=== PATIENT | female | born 1940 | race Caucasian/White ===

== ENCOUNTER 2019-02-15 09:12 | Emergency (ER) | payer MEDICARE, MEDICAID ==
[~2019-02-15] VITALS: Ht 157.5 cm; Wt 56.7 kg
[2019-02-15] MEDS ORDERED: ATORVASTATIN CA20 MG ORAL (09:23)
[2019-02-15] MEDS ORDERED: DONEPEZIL HCL10 M2 ORAL (09:23)
[2019-02-15] MEDS ORDERED: AMLODIPINE BES2.5 MG ORAL (09:23)
--- NOTE | 2019-02-15 09:41 | Emergency Room Report ---
History of Present Illness General Chief Complaint: Lower Extremity Injury Source: Family Member Present Illness HPI Patient is an 78-year-old female brought in by family member after increased right lower extremity pain. Patient reports having increased pain to the low back as well as the right hip and right knee. She did prior history of hypertension. She had prior mild dementia. She is taking ibuprofen for pain. Denies any weakness. She had been ambulatory without assistance. Pain is worse with movement but is constant. Denies any other injury or recent fall. Allergies: Coded Allergies: No Known Allergies (Unverified , 02/15/19) Patient History Past Medical History: see triage record Reviewed Nursing Documentation: PMH: Agreed; PSxH: Agreed Nursing Documentation-PMH Past Medical History: No History, Except For Hx Hypertension: Yes Hx Pacemaker: Yes Review of Systems All Other Systems: limited - Review of systems: Review systems is limited by patient's being a poor historian Physical Exam Vital Signs Date Time Temp Pulse Resp B/P (MAP) Pulse Ox O2 Delivery O2 Flow Rate FiO2 02/15/19 09:17 98.1 60 18 138/77 (97) 95 Room Air Sp02 EP Interpretation: reviewed, normal General Appearance: normal inspection, no apparent distress, alert, GCS 15, Chronically Ill Head: atraumatic ENT: normal ENT inspection, hearing grossly normal, normal voice Neck: normal inspection, full range of motion, supple, no bony tend Respiratory: normal inspection, lungs clear, normal breath sounds, no respiratory distress, no retraction, no wheezing Cardiovascular #1: regular rate, rhythm, no edema Gastrointestinal: normal inspection, normal bowel sounds, non tender, soft, no guarding, no hernia Genitourinary: no CVA tenderness Musculoskeletal: normal inspection, back normal, normal range of motion Neurologic: normal inspection, alert, responsive, momd teacher III-XII nml as tested, motor strength/tone normal, DTRs symmetric Psychiatric: normal inspection, judgement/insight normal, mood/affect normal Skin: no rash Medical Decision Making Diagnostic Impression: Primary Impression: Arthritis Additional Impression: Lumbar disc disease ER Course Patient presented for right knee pain and low back pain. Differential diagnosis include was not limited to herniated disc, fracture, Alonzo's cyst, arthritis among others. CT imaging of the lumbar spine was ordered due to patient's symptoms which are somewhat consistent with some radiculopathy. X- ray imaging of the knee showed degenerative changes without an fracture. X-ray imaging of the right ankle 3 views read by radiology showed degenerative changes without acute fracture. CT imaging read by radiology showed no evidence of compression fracture. There is degenerative changes noted. See radiology reports for full details. Patient appears to have some degenerative arthritis and was given prescription for pain medications. Patient is to follow -up with Dr. Womack for recheck. Patient to return if any worsening condition or other concerns. She is noted to be ambulatory with steady gait. Patient was given prescription for Voltaren gel as well as for Tylenol. Labs Test 02/15/19 09:40 Urine Color Pale yellow Urine Appearance Clear Urine pH 5 (4.5-8.0) Urine Specific [place] 1.015 (1.005-1.035) Urine Protein Negative (NEGATIVE) Urine Glucose (UA) Negative (NEGATIVE) Urine Ketones Negative (NEGATIVE) Urine Blood 1+ (NEGATIVE) Urine Nitrite Negative (NEGATIVE) Urine Bilirubin Negative (NEGATIVE) Urine Urobilinogen Normal MG/DL (0.0-1.0) Urine Leukocyte Esterase Negative (NEGATIVE) Urine RBC 0-2 /HPF (0 - 2) Urine WBC 0-2 /HPF (0 - 2) Urine Squamous Epithelial Cells Occasional /LPF Urine Bacteria Occasional /HPF (NONE) Last Vital Signs Date Time Temp Pulse Resp B/P (MAP) Pulse Ox O2 Delivery O2 Flow Rate FiO2 02/15/19 09:17 98.1 60 18 138/77 (97) 95 Room Air Status: improved Disposition: HOME, SELF-CARE Condition: Stable Scripts Diclofenac Sodium (VOLTAREN) 100 Gm Gel..gram. 5 GM TP TWICE A DAY, #100 GM Prov: Tyrese Wade MD 02/15/19 Acetaminophen* (ACETAMINOPHEN EXTRA STRENGTH*) 500 Mg Tablet 500 MG ORAL Q6H, #30 TAB Prov: Tyrese Wade MD 02/15/19 Tyrese Wade MD Feb 15, 2019 09:41
[2019-02-15] MEDS ORDERED: Acetaminophen 500mg (ES) tab ORAL ONE (09:45)
[2019-02-15 09:54] LABS: APPEARANCE,URINE CLEAR; BILIRUBIN, URINE NEGATIVE (NEGATIVE); COLOR,URINE PALE YELLOW; GLUCOSE, URINE (UA) NEGATIVE (NEGATIVE); KETONES,URINE NEGATIVE (NEGATIVE); LEUKOCYTE ESTERASE ,URINE NEGATIVE (NEGATIVE); NITRITE,URINE NEGATIVE (NEGATIVE); PH,URINE 5 (4.5-8.0); PROTEIN,URINE NEGATIVE (NEGATIVE); UROBILINOGEN,URINE NORMAL MG/DL (0.0-1.0)
[2019-02-15] MEDS ORDERED: ACETAMINOPHEN500 M3 ORAL (10:54)
[2019-02-15] MEDS ORDERED: VOLTAREN100 G1 TP (10:54)
--- NOTE | 2019-02-15 11:16 | Diagnostic Imaging Report ---
Indications: Right lower extremity pain and low back pain Technique: Spiral acquisitions obtained through the lumbar spine. Multiplanar reconstructions were generated. No IV contrast utilized. Total dose length product 313 mGycm. CTDIvol(s) mGy. Dose reduction achieved using automated exposure control Comparison: none Findings: Bony alignment is normal. Vertebral body heights are preserved. No acute fractures. No dislocations. At T12-L1, there is mild degenerative disc narrowing and vacuum formation. There is mild bilateral facet arthrosis. No significant disc bulge or protrusion, spinal stenosis, or neural foraminal narrowing. At L1-2, there is minimal if any degenerative disc narrowing. There is some adjacent endplate irregularity. No significant disc bulge or protrusion, spinal stenosis, or neural foraminal stenosis. There is mild bilateral facet arthrosis. At L2-3, there is minimal if any degenerative disc narrowing. There is bilateral facet arthrosis. There is left subarticular and intraforaminal broad-based disc protrusion as well as generalized mild circumferential annular bulge. This may result in compromise of the left lateral recess and and slight compromise of the left neural foramen. No central canal stenosis demonstrated. There is mild bilateral facet arthrosis. At L3-4, there is mild to moderate degenerative disc narrowing. There is generalized circumferential annular bulge and more focal broad-based left-sided paracentral, subarticular, and intraforaminal disc protrusion. This may slightly compromise the left lateral recess and the neural foramen. No significant central canal stenosis. Facet arthrosis may result in mild right neural foraminal compromise At L4-5, the disc space is preserved. There is generalized circumferential annular bulge. There is bilateral ligamentum flavum hypertrophy and facet arthrosis. This does not significantly narrow the spinal canal, may slightly compromised bilateral lateral recesses. There may be minimal compromise of the bilateral neural foramina. At L5-S1, the disc space is preserved. No significant disc bulge or protrusion, spinal stenosis, or neural foraminal stenosis. The included extra spinal soft tissues are unremarkable. Impression: No acute bony trauma Multilevel degenerative changes as detailed on a level by level basis above The CT scanner at [facility] is accredited by the [employer] and the scans are performed using protocols designed to limit radiation exposure to as low as reasonably achievable to attain images of sufficient resolution adequate for diagnostic evaluation.
--- NOTE | 2019-02-15 12:07 | Diagnostic Imaging Report ---
Indication: Right ankle pain Technique: 3 views of the right ankle Comparison: none Findings: There is a small plantar spur. No acute fractures. No dislocations. The joint spaces are preserved. Bones are osteoporotic Impression: Osteoporosis. No acute process
--- NOTE | 2019-02-15 12:11 | Diagnostic Imaging Report ---
Indication: Right knee pain Technique: 3 views of the right knee Comparison: None Findings: No suprapatellar effusion. No fractures. No dislocations. There are dense opacity is seen in the inferior patella. Uncertain as whether this represents there are dense ossification or perhaps retained metal from a prior surgical procedure. There is probably an unfused ossification center of the tip of the fibular head is noted. Impression: Findings as noted. No acute abnormality.
[2019-02-15 16:20] VITALS: BP 136/77
== END 2019-02-15 16:16 | disposition home or self-care (01) ==
LOC: EMR 12:05
DX: M19.90 Unspecified osteoarthritis, unspecified site (principal); M51.36 Other intervertebral disc degeneration, lumbar region; M25.561 Pain in right knee; F03.90 Unspecified dementia, unspecified severity, without behavioral disturbance, psychotic disturbance, mood disturbance, and anxiety; M81.0 Age-related osteoporosis without current pathological fracture; Z95.0 Presence of cardiac pacemaker; I10 Essential (primary) hypertension
CPT/HCPCS: 72131; 81003; 99284